=== PATIENT | female | born 1965 | race Caucasian/White ===

== ENCOUNTER 2018-08-08 16:09 | Emergency (ER) | payer OTHER ==
[2018-08-08] MEDS ORDERED: Aspirin 81 MG Tab.Chew PO ONE (16:36)
[2018-08-08] MEDS ORDERED: Sodium Chloride 0.9% 1,000 ML IV ONE (16:36)
[2018-08-08] MEDS ORDERED: Sodium Chloride 0.9% 2.5 ML Syringe FLUSH PRN ×2 (16:36)
[2018-08-08] MEDS ORDERED: Sodium Chloride 0.9% 10 ML Syringe FLUSH PRN (16:36)
--- NOTE | 2018-08-08 16:43 | EDM.PDOC ---
ED HPI GENERAL MEDICAL PROBLEM - General Chief Complaint: Chest Pain Stated Complaint: CHEST PAINS Time Seen by Provider: 08/08/18 16:12 Source of Information: Reports: Patient History Limitations: Reports: No Limitations - History of Present Illness INITIAL COMMENTS - FREE TEXT/NARRATIVE: HISTORY AND PHYSICAL: History of present illness: 53-year-old female presenting to emergency department with chief complaint of substernal chest pain starting on off evening with no significant cardiopulmonary history. Patient states that evening approximately 3 days ago she had some generalized chest pain that she felt was just gas so ignored. This seemed to be relieved however yesterday she did have some other episodes very similar. Today she had intermittent stabbing left upper chest pain with some radiation to left arm so came to emergency room for further evaluation. She has had no associated nausea, vomiting, diaphoresis, or shortness of breath. Chest pain is stabbing and intermittent lasting approximately 15 seconds and is not aggravated or alleviated by any specific activity. Patient does note that she does have some significant seasonal allergies and has been coughing for the last 2 weeks. She has had a sore throat secondary to postnasal drainage. In addition she states that she has been "very gassy" secondary to her 's chili. She denies any significant history of cardiopulmonary disease and takes no medications regularly. She does have a father who suffered a massive MT at the age 43. She currently denies any current chest pain, palpitations, shortness of breath, syncopal episode neurologic deficits. Pain is not reproducible on exam. Initial EKG shows normal sinus rhythm with a heart rate of [address] changes Review of systems: As per history of present illness and below otherwise all systems reviewed and negative. Past medical history: As per history of present illness and as reviewed below otherwise noncontributory. Surgical history: As per history of present illness and as reviewed below otherwise noncontributory. Social history: No reported history of drug or alcohol abuse. Family history: As per history of present illness and as reviewed below otherwise noncontributory. Physical exam: HEENT: Atraumatic, normocephalic, pupils reactive, negative for conjunctival pallor or scleral icterus, mucous membranes moist, throat clear, neck supple, nontender, trachea midline. Lungs: Clear to auscultation, breath sounds equal bilaterally, chest nontender. Heart: S1S2, regular, negative for clicks, rubs, or JVD. Abdomen: Soft, nondistended, nontender. Negative for masses or hepatosplenomegaly. Negative for costovertebral tenderness. Pelvis: Stable nontender. Genitourinary: Deferred. Rectal: Deferred. Extremities: Atraumatic, negative for cords or calf pain. Neurovascular unremarkable. Neuro: Awake, alert, oriented. Cranial nerves II through XII unremarkable. Cerebellum unremarkable. Motor and sensory unremarkable throughout. Exam nonfocal. Diagnostics: CBC, CMP, INR, troponin, d-dimer, chest x-ray, EKG Therapeutics: ASA 324 mg by mouth 1 Impression: Atypical chest pain Plan: CBC, CMP, INR, troponin, d-dimer, chest x-ray, and EKG were all unremarkable. Patient's pain is most likely secondary to gas however secondary to the patient' s significant history I did stress that she needs a follow-up with a primary care provider here. In addition, I did state that she most likely would benefit from a stress test. She was in agreement. She was discharged in good condition with above instructions and told to return to emergency department if she had any new or worsening symptoms. Definitive disposition and diagnosis as appropriate pending reevaluation and review of above. Left Chest Pain Score (Numeric/FACES): 3 - Related Data Allergies Allergy/AdvReac Type Severity Reaction Status Date / Time codeine Allergy Itching Verified 08/08/18 16:17 Home Meds: Home Meds . 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 ED EXAM, GENERAL - Physical Exam Exam: See Below Course - Vital Signs Last Recorded V/S: Last Vital Signs Temp 97.6 F 08/08/18 16:14 Pulse 97 08/08/18 16:14 Resp 18 08/08/18 16:14 BP 138/94 H 08/08/18 16:14 Pulse Ox 98 08/08/18 16:14 - Orders/Labs/Meds Orders: Active Orders 24 hr Category Date Time Status EKG 12 Lead [EKG Documentation Completion] [RC] STAT Care 08/08/18 16:19 Active Chest 1V Frontal [CR] Stat Exams 08/08/18 16:36 Taken UA W/MICROSCOPIC [URIN] Stat Lab 08/08/18 16:36 Ordered Sodium Chloride 0.9% [Saline Flush] Med 08/08/18 16:36 Active 10 ml FLUSH ASDIRECTED PRN Sodium Chloride 0.9% [Saline Flush] Med 08/08/18 16:36 Active 2.5 ml FLUSH ASDIRECTED PRN Sodium Chloride 0.9% [Saline Flush] Med 08/08/18 16:36 Active 2.5 ml FLUSH ASDIRECTED PRN Saline Lock Insert [OM.PC] Stat Oth 08/08/18 16:36 Ordered Medication Orders Sodium Chloride (Saline Flush) 2.5 ml FLUSH ASDIRECTED PRN PRN Reason: Keep Vein Open Last Admin: 08/08/18 16:48 Dose: 2.5 ml Sodium Chloride (Saline Flush) 10 ml FLUSH ASDIRECTED PRN PRN Reason: Keep Vein Open Last Admin: 08/08/18 16:45 Dose: 10 ml Sodium Chloride (Saline Flush) 2.5 ml FLUSH ASDIRECTED PRN PRN Reason: Keep Vein Open Last Admin: 08/08/18 16:49 Dose: 2.5 ml Labs: Laboratory Tests 08/08/18 08/08/18 08/08/18 Range/Units 16:28 16:28 16:28 WBC 9.35 (4.0-11.0) K/uL RBC 4.23 L (4.30-5.90) M/uL Hgb 13.2 (12.0-16.0) g/dL Hct 38.3 (36.0-46.0) % MCV 90.5 (80.0-98.0) fL MCH 31.2 (27.0-32.0) pg MCHC 34.5 (31.0-37.0) g/dL RDW Std Deviation 40.0 (28.0-62.0) fl RDW Coeff of Stephen 12 (11.0-15.0) % Plt Count 236 (150-400) K/uL MPV 10.40 (7.40-12.00) fL Neut % (Auto) 58.6 (48.0-80.0) % Lymph % (Auto) 30.7 (16.0-40.0) % [place] % (Auto) 9.0 (0.0-15.0) % Eos % (Auto) 1.4 (0.0-7.0) % Baso % (Auto) 0.3 (0.0-1.5) % Neut # (Auto) 5.5 (1.4-5.7) K/uL Lymph # (Auto) 2.9 H (0.6-2.4) K/uL [place] # (Auto) 0.8 (0.0-0.8) K/uL Eos # (Auto) 0.1 (0.0-0.7) K/uL Baso # (Auto) 0.0 (0.0-0.1) K/uL Nucleated RBC % 0.0 /100WBC Nucleated RBCs # 0 K/uL INR 1.10 D-Dimer, Quantitative 0.19 (0.0-0.52) mg/LFEU Sodium 141 (136-145) mmol/L Potassium 4.3 (3.5-5.1) mmol/L Chloride 104 (98-107) mmol/L Carbon Dioxide 27.3 (21.0-32.0) mmol/L BUN 21 H (7.0-18.0) mg/dL Creatinine 1.1 H (0.6-1.0) mg/dL Est Cr Clr Drug Dosing 53.22 mL/min Estimated GFR (MDRD) 52.0 ml/min Glucose 85 (74-106) mg/dL Calcium 9.1 (8.5-10.1) mg/dL Total Bilirubin 0.4 (0.2-1.0) mg/dL AST 15 (15-37) IU/L ALT 19 (14-63) IU/L Alkaline Phosphatase 60 (46-116) U/L Troponin I < 0.050 (0.000-0.056) ng/mL Total Protein 7.3 (6.4-8.2) g/dL Albumin 4.0 (3.4-5.0) g/dL Globulin 3.3 (2.0-3.5) g/dL Albumin/Globulin Ratio 1.2 L (1.3-2.8) Meds: Medications Generic Name Dose Route Start Last Admin Trade Name Freq PRN Reason Stop Dose Admin Sodium Chloride 2.5 ml 08/08/18 16:36 08/08/18 16:48 Saline Flush FLUSH 2.5 ml ASDIRECTED PRN Administration Keep Vein Open Sodium Chloride 10 ml 08/08/18 16:36 08/08/18 16:45 Saline Flush FLUSH 10 ml ASDIRECTED PRN Administration Keep Vein Open Sodium Chloride 2.5 ml 08/08/18 16:36 08/08/18 16:49 Saline Flush FLUSH 2.5 ml ASDIRECTED PRN Administration Keep Vein Open Discontinued Medications Generic Name Dose Route Start Last Admin Trade Name Freq PRN Reason Stop Dose Admin Aspirin 324 mg 08/08/18 16:36 08/08/18 16:45 Aspirin PO 08/08/18 16:37 324 mg ONETIME ONE Administration Sodium Chloride 1,000 mls @ 999 mls/hr 08/08/18 16:36 08/08/18 16:45 Normal Saline IV 08/08/18 17:36 999 mls/hr BOLUS ONE Administration Departure - Departure Time of Disposition: 17:43 Disposition: Home, Self-Care 01 Condition: Good Clinical Impression: Atypical chest pain - Discharge Information Referrals: PCP,None [Primary Care Provider] - Forms: ED Department Discharge Additional Instructions: My general discharge The following information is given to patients seen in the emergency department who are being discharged to home. This information is to outline your options for follow-up care. We provide all patients seen in our emergency department with a follow-up referral. The need for follow-up, as well as the timing and circumstances, are variable depending upon the specifics of your emergency department visit. If you don't have a primary care physician on staff, we will provide you with a referral. We always advise you to contact your personal physician following an emergency department visit to inform them of the circumstance of the visit and for follow-up with them and/or the need for any referrals to a consulting specialist. The emergency department will also refer you to a specialist when appropriate. This referral assures that you have the opportunity for follow-up care with a specialist. All of these measure are taken in an effort to provide you with optimal care, which includes your follow-up. Under all circumstances we always encourage you to contact your private physician who remains a resource for coordinating your care. When calling for follow-up care, please make the office aware that this follow-up is from your recent emergency room visit. If for any reason you are refused follow-up, please contact the [facility] Emergency Department at and asked to speak to the emergency department charge nurse. [facility] Primary Care [address] [place] [id number] [facility] Primary Care - Women's Health [address] [place] [id number] As we discussed please follow-up with a primary care provider by calling them on Friday with above numbers. Be sure to tell them the [facility] emergency department and they wish for you to be seen as soon as possible. As we discussed with your family history he would most likely benefit from a cardiac stress test. As we discussed return to the emergency department if you have any new or worsening symptoms. - My Orders Last 24 Hours: My Active Orders 08/08/18 16:19 EKG 12 Lead [EKG Documentation Completion] [RC] STAT 08/08/18 16:36 Chest 1V Frontal [CR] Stat UA W/MICROSCOPIC [URIN] Stat Sodium Chloride 0.9% [Saline Flush] 10 ml FLUSH ASDIRECTED PRN Sodium Chloride 0.9% [Saline Flush] 2.5 ml FLUSH ASDIRECTED PRN Sodium Chloride 0.9% [Saline Flush] 2.5 ml FLUSH ASDIRECTED PRN Saline Lock Insert [OM.PC] Stat - Assessment/Plan Last 24 Hours: My Active Orders 08/08/18 16:19 EKG 12 Lead [EKG Documentation Completion] [RC] STAT 08/08/18 16:36 Chest 1V Frontal [CR] Stat UA W/MICROSCOPIC [URIN] Stat Sodium Chloride 0.9% [Saline Flush] 10 ml FLUSH ASDIRECTED PRN Sodium Chloride 0.9% [Saline Flush] 2.5 ml FLUSH ASDIRECTED PRN Sodium Chloride 0.9% [Saline Flush] 2.5 ml FLUSH ASDIRECTED PRN Saline Lock Insert [OM.PC] Stat
[2018-08-08 16:55] LABS: CHLORIDE,CL 104 mmol/L (98-107); SODIUM,NA 141 mmol/L (136-145)
--- NOTE | 2018-08-10 14:52 | CR ---
EXAM DATE: 08/08/18 PATIENT'S AGE: 53 Patient: MILO DIEGO Facility: [place], [place] Site . Site : [id number] Study: XRay Chest [id number]/[id number] 5:26:15 PM Ordering Physician: Neri Quinteros Final Report: INDICATIONS: Chest pain. TECHNIQUE: Chest 1 view. COMPARISON: None FINDINGS: No pneumothorax, pleural effusion or airspace consolidation. Cardiac and mediastinal contours are within normal limits. Upper abdomen and osseous structures as imaged show no acute abnormality. IMPRESSION: No evidence of acute cardiopulmonary disease. Dictated by Gustavo Corley MD @ 08/08/2018 6:11:33 PM Dictated by: Gustavo Corley MD @ 08/08/2018 18:11:38 (Electronic Signature) Report Signed by Proxy. [facility]
== END 2018-08-08 18:14 | disposition home or self-care (01) ==
LOC: MW.ED 16:09
DX: R07.89 Other chest pain (principal); Z88.5 Allergy status to narcotic agent
CPT/HCPCS: 36415; 71045; 80053; 84484; 85025; 85379; 85610; 93005; 96360; 99285; A9270; J7040

== ENCOUNTER 2023-10-02 15:31 | Emergency (ER) | payer SELFPAY ==
[2023-10-02] MEDS ORDERED: Diphtheria,Pertussis(Acell),Tetanus Vaccine 0.5 ML Syringe IM ONE (17:20)
[2023-10-02] MEDS ORDERED: Cephalexin 500 MG Cap PO ONE (17:21)
== END 2023-10-02 17:53 | disposition home or self-care (01) ==
LOC: MW.ED 15:31
DX: S61.012A Laceration without foreign body of left thumb without damage to nail, initial encounter (principal); Z88.5 Allergy status to narcotic agent; Z23 Encounter for immunization; W26.0XXA Contact with knife, initial encounter
CPT/HCPCS: 12002; 73130; 90471; 90715; 99283; A9270

== ENCOUNTER 2023-10-19 11:31 | Emergency (ER) | payer OTHER | END 2023-10-19 12:24 | disposition home or self-care (01) | LOC: MW.ED 11:31 | DX: S61.012D Laceration without foreign body of left thumb without damage to nail, subsequent encounter (principal); Z88.5 Allergy status to narcotic agent; Z98.890 Other specified postprocedural states; W26.0XXD Contact with knife, subsequent encounter | CPT/HCPCS: 99282; 99283 ==